=== PATIENT | male | born 1965 | race Caucasian/White ===

== ENCOUNTER 2023-06-17 14:24 | Inpatient (IN) | payer BC ==
[~2023-06-17] VITALS: Ht 175.3 cm; Wt 76.3 kg
[2023-06-17 14:40] LABS: MEAN CORPUSCULAR HEMOGLOBIN 33.5 PG (27.0-31.0)
[2023-06-17 14:41] LABS: HEMATOCRIT 47.9 % (42.0-52.0); HEMOGLOBIN 16.2 g/dl (14.0-17.9); MEAN CORPUSCULAR HGB CONC 33.9 g/dL (33.0-36.5); MEAN CORPUSCULAR VOLUME 98.8 FL (78-98); MEAN PLATELET VOLUME 6.1 FL (7.4-10.4); PLATELET COUNT 195 X10'3 (140-440); RED BLOOD COUNT 4.85 X10'6 (4.70-6.10); RED CELL DISTRIBUTION WIDTH 14.3 % (11.5-14.5); WHITE BLOOD COUNT 7.9 X10'3 (4.5-11.0)
[2023-06-17 14:55] LABS: ALANINE AMINOTRANSFERASE 30 U/L (12-78); ALBUMIN 3.5 G/DL (3.4-5.0); ALBUMIN/GLOBULIN RATIO 0.9 (1.1-1.5); ALKALINE PHOSPHATASE 85 IU/L (46-116); ANION GAP 12 (8-16); ASPARTATE AMINO TRANSFERASE 78 U/L (10-37); BILIRUBIN,TOTAL 0.6 MG/DL (0.1-1.0); BLOOD UREA NITROGEN 9 MG/DL (7-18); CALCIUM 8.8 MG/DL (8.5-10.1); CHLORIDE 102 MMOL/L (99-107); CREATININE 1.12 MG/DL (0.60-1.10); GLUCOSE 108 MG/DL (70-104); POTASSIUM 3.5 MMOL/L (3.5-5.1); SODIUM 137 MMOL/L (135-145); TOTAL PROTEIN 7.5 G/DL (6.4-8.2); eCRCL 73 ML/MIN; eGFR 68 ML/MIN
[2023-06-17 15:03] LABS: PRO BRAIN NATRIURETIC PEPTIDE 732 PG/ML (0-125)
[2023-06-17 15:09] LABS: PLATELET ESTIMATE NORMAL; TOTAL CELLS COUNTED 100
[2023-06-17] MEDS ORDERED: heparin 10,000 units/1 ML INJ IV ONE (15:15)
[2023-06-17] MEDS ORDERED: aspirin 81mg tab.chew PO ONE (15:15)
[2023-06-17] MEDS ORDERED: normal saline 1000ml 1,000 ML IV ONE (15:15)
[2023-06-17] MEDS ORDERED: iohexol 350MG/ML 100ml bottle IV ONE (15:23)
[2023-06-17 15:32] LABS: APTT 29 SECONDS (22-32); D-DIMER 14.67 MG/L FEU (0-0.50); PROTHROMBIN TIME 10.9 SECONDS (9.0-12.0)
[2023-06-17] MEDS ORDERED: normal saline 1000ML IV soln IVB ONE ×2 (15:55→19:15)
[2023-06-17] MEDS: heparin 25,000 UNIT/250ml bag 250 ML IV PRN (16:00)
[2023-06-17] MEDS ORDERED: alteplase 100MG inj. 100 ML IV ONE (16:15)
--- NOTE | 2023-06-17 17:48 | NUR ---
PT REPORTS NAUSEA AND CHILLS, UPON INSPECTION PTS' ORAL TEMP WAS 98.2. PROVIDER WAS MADE AWARE AND GAVE VERBAL ORDER FOR 4MG ZOFRAN AND 25MG BENADRYL.
[2023-06-17] MEDS ORDERED: ondansetron/PF 4mg/2ml inj IV ONE (17:50)
[2023-06-17] MEDS ORDERED: diphenhydrAMINE 50 mg/ml inj IV ONE (17:50)
[2023-06-17] MEDS ORDERED: LISI20TA28 PO (18:01)
[2023-06-17] MEDS ORDERED: LEVO50TA8 PO (18:01)
[2023-06-17 19:09] LABS: C-REACTIVE PROTEIN 1.19 MG/DL (0.0-0.5)
[2023-06-17] MEDS ORDERED: OMEP40CA21 PO (19:56)
[2023-06-17] MEDS ORDERED: magnesium hydroxide 30ml (MOM) UD suspension PO PRN (20:00)
[2023-06-17] MEDS ORDERED: morphine 2 MG/ML inj. syringe IV PRN (20:00)
[2023-06-17] MEDS ORDERED: morphine 4 MG/ML inj SYRINge IV PRN (20:00)
[2023-06-17] MEDS ORDERED: acetaminophen 325mg tablet PO PRN ×2 (20:00)
[2023-06-17] MEDS ORDERED: ondansetron/PF 4mg/2ml inj IV PRN (20:00)
[2023-06-17] MEDS: normal saline 1000ml 1,000 ML IV SCH (20:43)
[2023-06-17 21:00] VITALS: BP 151/95; PULSE 87; RESP 16; O2SAT 98
--- NOTE | 2023-06-17 21:00 | NUR ---
Patient in room CICU 2007. I have received report from Vivian MARTINO and had the opportunity to ask questions and assume patient care.
--- NOTE | 2023-06-17 21:00 | NUR ---
Patient in 2008 Nuero status in tact.
[2023-06-17 22:01] VITALS: BP 149/97; PULSE 88; RESP 16; O2SAT 98
[2023-06-17 22:06] VITALS: RESP 16; O2SAT 98
[2023-06-17 22:38] LABS: APTT 110 SECONDS (22-32)
[2023-06-17 23:00] VITALS: BP 169/100; PULSE 91; RESP 16; O2SAT 96
[2023-06-18] VITALS (20 sets, daily range): BP systolic 113–179; BP diastolic 86–111; PULSE 72–100; RESP 14–20; TEMP 98.5–100.6; O2SAT 95–99
--- NOTE | 2023-06-18 06:26 | NUR ---
Problems reprioritized. Patient report given, questions answered & plan of care reviewed with Cesia MARTINO.
[2023-06-18 06:39] LABS: BASOPHILS # (AUTO) 0.1 X10'3 (0-0.2); EOSINOPHILS # (AUTO) 0.2 X10'3 (0-0.9); EOSINOPHILS % (AUTO) 2.5 % (0-6); HEMOGLOBIN 14.4 g/dl (14.0-17.9); LYMPHOCYTES # (AUTO) 1.8 X10'3 (1.1-4.8); MEAN CORPUSCULAR HEMOGLOBIN 33.8 PG (27.0-31.0); MEAN CORPUSCULAR HGB CONC 34.3 g/dL (33.0-36.5); MEAN CORPUSCULAR VOLUME 98.5 FL (78-98); MEAN PLATELET VOLUME 6.7 FL (7.4-10.4); MONOCYTES # (AUTO) 0.6 X10'3 (0-0.9); MONOCYTES % (AUTO) 8.7 % (2-12); NEUTROPHILS # (AUTO) 4.1 X10'3 (1.8-7.7); NEUTROPHILS % (AUTO) 60.8 % (42-75); PLATELET COUNT 152 X10'3 (140-440); RED BLOOD COUNT 4.27 X10'6 (4.70-6.10); RED CELL DISTRIBUTION WIDTH 14.3 % (11.5-14.5); WHITE BLOOD COUNT 6.7 X10'3 (4.5-11.0)
[2023-06-18 06:48] LABS: ALANINE AMINOTRANSFERASE 25 U/L (12-78); ALBUMIN 2.8 G/DL (3.4-5.0); ALBUMIN/GLOBULIN RATIO 0.9 (1.1-1.5); ALKALINE PHOSPHATASE 73 IU/L (46-116); ANION GAP 12 (8-16); ASPARTATE AMINO TRANSFERASE 44 U/L (10-37); BILIRUBIN,TOTAL 1.1 MG/DL (0.1-1.0); BLOOD UREA NITROGEN 8 MG/DL (7-18); BUN/CREATININE RATIO 8.7 (10.0-20.0); CALCIUM 7.9 MG/DL (8.5-10.1); CHLORIDE 104 MMOL/L (99-107); CREATININE 0.92 MG/DL (0.60-1.10); GLUCOSE 90 MG/DL (70-104); POTASSIUM 3.4 MMOL/L (3.5-5.1); SODIUM 138 MMOL/L (135-145); TOTAL CARBON DIOXIDE 22.3 MMOL/L (24-32); eCRCL 89 ML/MIN; eGFR 85 ML/MIN
[2023-06-18] MEDS: pantoprazole 40mg Tablet.DR PO SCH (08:04)
[2023-06-18] MEDS: normal saline 1000ml 1,000 ML IV SCH (09:20)
[2023-06-18] MEDS ORDERED: potassium Cl 20 mEq SR tablet PO PRN (09:45)
[2023-06-18] MEDS: potassium Cl 20 mEq SR tablet PO PRN ×3 (10:14→20:26)
[2023-06-18] MEDS: lisinopril 20mg tablet PO SCH (11:03)
[2023-06-18] MEDS ORDERED: hydrALAZINE 20mg/ml inj. IV ONE (13:40)
[2023-06-18] MEDS: amLODIPine 5mg tablet PO SCH (13:40)
[2023-06-18] MEDS ORDERED: LORazepam 1 MG tablet PO PRN (13:40)
[2023-06-18] MEDS ORDERED: LORazepam 2 mg/ml vial IV PRN (13:40)
--- NOTE | 2023-06-18 17:17 | NUR ---
RECEIVED REPORT ON PT. PT TO TRANSFER TO ROOM 3021.
--- NOTE | 2023-06-18 17:45 | NUR ---
Report called to GUNNER Arce. Patient transferred to room 3021 via wheelchair, attached to shelter monitor, and with all belongings.
[2023-06-18] MEDS: hydrALAZINE 20mg/ml inj. IV PRN (17:58)
--- NOTE | 2023-06-18 18:48 | NUR ---
Gave report to Pamela MARTINO.
--- NOTE | 2023-06-18 20:15 | NUR ---
Pt c/o hematoma on upper left arm. Pt had perfusion to distal extremity and Dr De Souza came and assessed patient. Pt dvt/ptt was 37 so increased patient rate according to protocol. Protocol bolus was held by Dr De Souza due to the hematoma. No other orders at this time.
[2023-06-18] MEDS: thiamine 100mg/ml 2ml inj. IV SCH (20:24)
[2023-06-18] MEDS: heparin 25,000 UNIT/250ml bag 250 ML IV PRN (23:41)
[2023-06-19] VITALS (7 sets, daily range): BP systolic 117–161; BP diastolic 59–108; PULSE 84–100; RESP 11–19; TEMP 97.8–99.2; O2SAT 96–98
[2023-06-19] MEDS: hydrALAZINE 20mg/ml inj. IV PRN (02:20)
[2023-06-19 02:49] LABS: PROTHROMBIN TIME 11.1 SECONDS (9.0-12.0)
[2023-06-19 02:51] LABS: ALANINE AMINOTRANSFERASE 23 U/L (12-78); ALBUMIN 2.8 G/DL (3.4-5.0); ALBUMIN/GLOBULIN RATIO 0.8 (1.1-1.5); ALKALINE PHOSPHATASE 67 IU/L (46-116); AMYLASE 33 U/L (25-115); ANION GAP 4 (8-16); ASPARTATE AMINO TRANSFERASE 33 U/L (10-37); BILIRUBIN,TOTAL 0.7 MG/DL (0.1-1.0); BLOOD UREA NITROGEN 7 MG/DL (7-18); BUN/CREATININE RATIO 7.9 (10.0-20.0); CALCIUM 8.8 MG/DL (8.5-10.1); CHLORIDE 101 MMOL/L (99-107); CHOL/HDL RATIO 2.3 (0.00-4.99); CHOLESTEROL 150 MG/DL (0-200); CREATININE 0.89 MG/DL (0.60-1.10); GLUCOSE 118 MG/DL (70-104); HDL CHOLESTEROL 64 MG/DL (35-60); LDL CHOLESTEROL 66 MG/DL (50-100); MAGNESIUM 1.3 MG/DL (1.5-2.4); PHOSPHORUS 2.5 MG/DL (2.3-4.5); POTASSIUM 3.5 MMOL/L (3.5-5.1); SODIUM 133 MMOL/L (135-145); TOTAL CARBON DIOXIDE 28.5 MMOL/L (24-32); TOTAL PROTEIN 6.1 G/DL (6.4-8.2); TRIGLYCERIDES 79 MG/DL (20-135); eCRCL 92 ML/MIN; eGFR 88 ML/MIN
[2023-06-19 02:58] LABS: BASOPHILS # (AUTO) 0.1 X10'3 (0-0.2); BASOPHILS % (AUTO) 1.1 % (0-1); EOSINOPHILS # (AUTO) 0.2 X10'3 (0-0.9); EOSINOPHILS % (AUTO) 2.3 % (0-6); HEMATOCRIT 38.8 % (42.0-52.0); HEMOGLOBIN 13.2 g/dl (14.0-17.9); LYMPHOCYTES # (AUTO) 1.8 X10'3 (1.1-4.8); LYMPHOCYTES % (AUTO) 27.2 % (21-51); MEAN CORPUSCULAR HEMOGLOBIN 33.5 PG (27.0-31.0); MEAN CORPUSCULAR HGB CONC 34.1 g/dL (33.0-36.5); MEAN CORPUSCULAR VOLUME 98.1 FL (78-98); MONOCYTES # (AUTO) 0.6 X10'3 (0-0.9); MONOCYTES % (AUTO) 9.3 % (2-12); NEUTROPHILS % (AUTO) 60.1 % (42-75); PLATELET COUNT 168 X10'3 (140-440); RED BLOOD COUNT 3.95 X10'6 (4.70-6.10); RED CELL DISTRIBUTION WIDTH 14.1 % (11.5-14.5); WHITE BLOOD COUNT 6.6 X10'3 (4.5-11.0)
[2023-06-19 03:35] LABS: HEMOGLOBIN A1C 5.4 % (4.5-6.2)
--- NOTE | 2023-06-19 06:24 | NUR ---
Problems reprioritized. Patient report given, questions answered & plan of care reviewed with GUNNER SYED. Pt has been npo since 39.
[2023-06-19] MEDS ORDERED: magnesium 2GM in 50ml NS 50 ML IV ONE (07:50)
[2023-06-19] MEDS: pantoprazole 40mg Tablet.DR PO SCH (08:31)
[2023-06-19] MEDS: multivitamins, therapeutics tablet PO SCH (08:32)
[2023-06-19] MEDS: lisinopril 20mg tablet PO SCH (08:32)
[2023-06-19] MEDS: levoTHYROXINE 25mcg tablet PO SCH (08:32)
[2023-06-19] MEDS: amLODIPine 5mg tablet PO SCH (08:33)
[2023-06-19] MEDS: thiamine 100mg/ml 2ml inj. IV SCH ×3 (08:34→20:46)
[2023-06-19] MEDS: folic acid 1mg/0.2ml inj IV SCH (08:34)
--- NOTE | 2023-06-19 18:51 | NUR ---
GAVE REPORT TO RADHIKA MARTINO.
[2023-06-19] MEDS: heparin 25,000 UNIT/250ml bag 250 ML IV PRN (22:55)
[2023-06-20 02:00] VITALS: BP 115/77; PULSE 95; RESP 24; TEMP 97.9; O2SAT 96
[2023-06-20 02:09] LABS: PROTHROMBIN TIME 10.4 SECONDS (9.0-12.0)
[2023-06-20] MEDS: levoTHYROXINE 25mcg tablet PO SCH (05:39)
[2023-06-20 06:00] VITALS: BP 139/92; PULSE 91; RESP 16; TEMP 98.2; O2SAT 98
--- NOTE | 2023-06-20 06:49 | NUR ---
Problems reprioritized. Patient report given, questions answered & plan of care reviewed with GUNNER CHAMBERLAIN.
[2023-06-20 07:07] VITALS: BP 115/77; PULSE 95; RESP 24; TEMP 97.9; O2SAT 96
[2023-06-20] MEDS ORDERED: apixaban 5mg tablet PO SCH (08:00)
[2023-06-20 09:00] VITALS: RESP 16
[2023-06-20] MEDS: multivitamins, therapeutics tablet PO SCH (09:01)
[2023-06-20] MEDS: pantoprazole 40mg Tablet.DR PO SCH (09:02)
[2023-06-20] MEDS: thiamine 100mg/ml 2ml inj. IV SCH (09:03)
[2023-06-20] MEDS: folic acid 1mg/0.2ml inj IV SCH (09:03)
[2023-06-20] MEDS: lisinopril 20mg tablet PO SCH (09:03)
[2023-06-20] MEDS: amLODIPine 5mg tablet PO SCH (09:03)
[2023-06-20 09:51] LABS: BASOPHILS # (AUTO) 0.1 X10'3 (0-0.2); EOSINOPHILS # (AUTO) 0.2 X10'3 (0-0.9); HEMOGLOBIN 13.9 g/dl (14.0-17.9); MONOCYTES # (AUTO) 0.5 X10'3 (0-0.9); PLATELET COUNT 228 X10'3 (140-440); RED CELL DISTRIBUTION WIDTH 14.1 % (11.5-14.5); WHITE BLOOD COUNT 6.1 X10'3 (4.5-11.0)
[2023-06-20 09:53] LABS: BASOPHILS % (AUTO) 1.4 % (0-1); EOSINOPHILS % (AUTO) 3.1 % (0-6); HEMATOCRIT 41.3 % (42.0-52.0); LYMPHOCYTES # (AUTO) 1.9 X10'3 (1.1-4.8); MEAN CORPUSCULAR HEMOGLOBIN 33.3 PG (27.0-31.0); MEAN CORPUSCULAR HGB CONC 33.6 g/dL (33.0-36.5); MEAN CORPUSCULAR VOLUME 99.1 FL (78-98); MEAN PLATELET VOLUME 6.8 FL (7.4-10.4); MONOCYTES % (AUTO) 8.7 % (2-12); NEUTROPHILS # (AUTO) 3.3 X10'3 (1.8-7.7); NEUTROPHILS % (AUTO) 54.8 % (42-75); RED BLOOD COUNT 4.16 X10'6 (4.70-6.10)
[2023-06-20 10:13] LABS: ALANINE AMINOTRANSFERASE 29 U/L (12-78); ALBUMIN 3.5 G/DL (3.4-5.0); ALBUMIN/GLOBULIN RATIO 0.9 (1.1-1.5); ALKALINE PHOSPHATASE 80 IU/L (46-116); AMYLASE 37 U/L (25-115); ANION GAP 6 (8-16); ASPARTATE AMINO TRANSFERASE 42 U/L (10-37); BILIRUBIN,TOTAL 0.8 MG/DL (0.1-1.0); BLOOD UREA NITROGEN 8 MG/DL (7-18); BUN/CREATININE RATIO 7.6 (10.0-20.0); CALCIUM 9.7 MG/DL (8.5-10.1); CHLORIDE 98 MMOL/L (99-107); CREATININE 1.05 MG/DL (0.60-1.10); GLUCOSE 143 MG/DL (70-104); MAGNESIUM 1.8 MG/DL (1.5-2.4); PHOSPHORUS 3.8 MG/DL (2.3-4.5); POTASSIUM 3.9 MMOL/L (3.5-5.1); SODIUM 131 MMOL/L (135-145); TOTAL CARBON DIOXIDE 27.4 MMOL/L (24-32); TOTAL PROTEIN 7.6 G/DL (6.4-8.2); eCRCL 78 ML/MIN; eGFR 73 ML/MIN
[2023-06-20 10:44] VITALS: BP 108/77; PULSE 91; RESP 16; TEMP 98.7; O2SAT 98
[2023-06-20] MEDS ORDERED: FOLI0.4T6 PO (11:00)
[2023-06-20] MEDS ORDERED: MULT-1085 PO (11:00)
[2023-06-20] MEDS ORDERED: THIA50TA10 PO (11:00)
[2023-06-20] MEDS ORDERED: APIX5TAB3 PO (11:00)
[2023-06-20] MEDS ORDERED: NOR5T PO (11:00)
--- NOTE | 2023-06-20 13:00 | NUR ---
Patient discharge reviewed with patient and patient verbalized understanding. Patients IV dc'd cannula intact no bleeding noted. Tele Dc'd for discharge. Patient was given coupon for Eliquis. Patient verbalized understanding of Eliquis dosage instructions for the next 13 doses and then to reduce dosage there after per MD instructions in the discharge.
[2023-06-21 15:27] LABS: PROTEIN S, FREE 130 % (61-136); PROTEIN S, TOTAL 82 % (60-150)
[2023-06-23] MEDS ORDERED: folic acid 1mg tablet PO SCH (08:00)
[2023-06-23] MEDS ORDERED: thiamine 100mg tablet PO SCH (08:00)
== END 2023-06-20 13:06 | disposition home or self-care (01) | DRG 175 ==
LOC: ER 14:26 → ED HOLD 20:05 → CICU 2S 20:17 → PCU 3S 06-18 18:39
PROVIDERS: ADMIT Internal Medicine Critical Care Medicine; ATTEND Internal Medicine Critical Care Medicine
PROC: B32T1ZZ Computerized Tomography (CT Scan) of Left Pulmonary Artery using Low Osmolar Contrast (ICD-10-PCS; principal; 2023-06-17)
PROC: B3201ZZ Computerized Tomography (CT Scan) of Thoracic Aorta using Low Osmolar Contrast (ICD-10-PCS; 2023-06-17)
PROC: B32S1ZZ Computerized Tomography (CT Scan) of Right Pulmonary Artery using Low Osmolar Contrast (ICD-10-PCS; 2023-06-17)
PROC: 3E03317 Introduction of Other Thrombolytic into Peripheral Vein, Percutaneous Approach (ICD-10-PCS; 2023-06-17)
DX: I26.99 Other pulmonary embolism without acute cor pulmonale (principal); I21.A1 Myocardial infarction type 2; I82.413 Acute embolism and thrombosis of femoral vein, bilateral; I82.433 Acute embolism and thrombosis of popliteal vein, bilateral; I82.453 Acute embolism and thrombosis of peroneal vein, bilateral; I82.443 Acute embolism and thrombosis of tibial vein, bilateral; Z20.822 Contact with and (suspected) exposure to COVID-19; K44.9 Diaphragmatic hernia without obstruction or gangrene; I10 Essential (primary) hypertension; K21.9 Gastro-esophageal reflux disease without esophagitis; F10.90 Alcohol use, unspecified, uncomplicated; E03.9 Hypothyroidism, unspecified; Z79.899 Other long term (current) drug therapy
CPT/HCPCS: 36415; 71045; 71275; 80053; 80061; 81479; 82150; 83036; 83735; 83880; 83891; 83894; 83898; 84100; 84145; 84484; 85007; 85025; 85300; 85301; 85303; 85305; 85306; 85379; 85610; 85730; 86140; 86147; 87081; 87811; 93005; 93306; 93308; 93970; 99285; A4615; A6213; G0378; J0360; J1200; J1644; J2270; J2405; J2997; J3411; J3475; J3490; J7030; J7040; Q9967